=== PATIENT | female | born 2005 | race Caucasian/White ===

== ENCOUNTER 2024-09-27 22:25 | Emergency (ER) | payer OTHER ==
[2024-09-27 22:59] LABS: Glucose, Urine (Dipstick) Normal (Negative); Leukocyte 100 (Negative); Pregnancy Test - Urine (BHCG) Negative (Negative); Pregu Control Background? CLEAR/WHITE (CLR/WHITE); Pregu Control Bar Appear? YES (CONTROL BAR); Protein, Urine (Dipstick) 100 mg/dl (Neg-Trace); Specific Gravity, Urine 1.020 (1.005-1.030)
[2024-09-27 23:03] LABS: Bacteria/HPF 3+ HPF (None Seen); CAUTI Indications for Culture Pelvic or flank pain; RBC/HPF Greater than 50 HPF (0-3); WBC/HPF Greater than 50 HPF (0-3)
[2024-09-27 23:04] LABS: Urine Culture Reflex Yes Yes
== END 2024-09-28 00:13 | disposition home or self-care (01) ==
LOC: CSHERS 22:25
DX: N39.0 Urinary tract infection, site not specified (principal)
CPT/HCPCS: 81001; 81025; 87077; 87086; 99284